=== PATIENT | female | born 1985 | race Caucasian/White ===

== ENCOUNTER 2018-12-14 04:40 | Inpatient (IN) | payer MEDICAID ==
[2018-12-14 05:24] LABS: ADD MAN DIFF? NO
[2018-12-14 05:29] LABS: WHITE BLOOD COUNT 7.7 10^3/ul (4.8-10.8)
[2018-12-14 05:29] LABS: BASOPHIL # 0.1 10^3/ul (0.0-0.1); BASOPHILS % 1.2 % (0.0-2.0); EOSINOPHILS # 0.6 10^3/ul (0.0-0.5); EOSINOPHILS % 7.4 % (0.0-7.0); HEMATOCRIT 39.8 % (37.0-47.0); HEMOGLOBIN 13.7 g/dl (12.0-16.0); LYMPHOCYTES # 2.9 10^3/ul (0.8-2.9); LYMPHOCYTES % 37.5 % (15.0-51.0); MEAN CORPUSCULAR HEMOGLOBIN 28.8 pg (29.0-33.0); MEAN CORPUSCULAR HGB CONC 34.4 g/dl (32.0-37.0); MEAN CORPUSCULAR VOLUME 83.8 fl (82.0-101.0); MEAN PLATELET VOLUME 9.9 fl (7.4-10.4); MONOCYTE # 0.7 10^3/ul (0.3-0.9); MONOCYTES % 9.5 % (0.0-11.0); NEUTROPHIL # 3.4 10^3/ul (1.6-7.5); NEUTROPHILS % 44.3 % (39.0-77.0); PLATELET COUNT 378 10^3/UL (140-415); RED BLOOD COUNT 4.75 10^6/ul (4.20-5.40); RED CELL DISTRIBUTION WIDTH 12.4 % (11.5-14.5)
[2018-12-14] MEDS: morphine 4 MG/ML VIAL IV (05:30)
[2018-12-14] MEDS: ONDANSETRON 4 MG INJ IV (05:30)
[2018-12-14 06:06] LABS: ALANINE AMINOTRANSFERASE 20 IU/L (13-69); ALBUMIN/GLOBULIN RATIO 1.35; ALKALINE PHOSPHATASE 76 IU/L (42-121); ANION GAP 14 (5-13); ASPARTATE AMINO TRANSFERASE 25 IU/L (15-46); BILIRUBIN,INDIRECT 1.2 mg/dl (0-1.1); BILIRUBIN,TOTAL 1.2 mg/dl (0.2-1.3); BLOOD UREA NITROGEN 15 mg/dl (7-20); CALCIUM 10.1 mg/dl (8.4-10.2); CARBON DIOXIDE 27 mmol/L (21-31); CHLORIDE 105 mmol/L (97-110); CREATININE 0.81 mg/dl (0.44-1.00); Estimated GFR > 60 mL/min (>60); GLUCOSE 140 mg/dl (70-220); LIPASE 331 U/L (23-300); POTASSIUM 3.8 mmol/L (3.5-5.1); SODIUM 146 mmol/L (135-144); TOTAL PROTEIN 8.7 g/dl (6.1-8.1)
[2018-12-14 08:21] LABS: ADD UMIC YES; UR AMORPHOUS CRYSTAL FEW /HPF (NONE SEEN); UR ASCORBIC ACID NEGATIVE (NEGATIVE); UR BILIRUBIN (Dip) NEGATIVE (NEGATIVE); UR BLOOD (Dip) NEGATIVE (NEGATIVE); UR CLARITY CLOUDY (CLEAR); UR COLOR YELLOW (YELLOW); UR GLUCOSE (Dip) NEGATIVE (NEGATIVE); UR KETONES (Dip) TRACE mg/dL (NEGATIVE); UR LEUKOCYTE ESTERASE (Dip) NEGATIVE Leu/ul (NEGATIVE); UR MUCUS MODERATE /HPF (NONE SEEN); UR NITRITE (Dip) NEGATIVE (NEGATIVE); UR RBC 2 /HPF (0-5); UR SPECIFIC GRAVITY (Dip) 1.025 (1.003-1.030); UR SQUAMOUS EPITHELIAL CELL FEW /HPF (FEW); UR TOTAL PROTEIN (Dip) 1+ mg/dl (NEGATIVE); UR UROBILINOGEN (Dip) NEGATIVE (NEGATIVE); UR WBC 0 /HPF (0-5)
[2018-12-14] MEDS: SOD CHLORIDE 0.9% 100 ML (10:50)
[2018-12-14] MEDS: IOHEXOL 100 ML (10:50)
[2018-12-14] MEDS: LORAZEPAM 2 MG INJ IV (13:21)
[2018-12-14] MEDS ORDERED: ACETAMINOPHEN 325 MG TAB PO (13:30)
[2018-12-14] MEDS ORDERED: ONDANSETRON 4 MG INJ IV ×2 (13:30→14:00)
[2018-12-14] MEDS ORDERED: NACL 0.9% 3 ML SYG IV (14:00)
[2018-12-14 15:16] LABS: AMPHETAMINE/METHAMPHETAMINE Positive (NEGATIVE); BARBITURATES Negative (NEGATIVE); BENZODIAZEPINES Negative (NEGATIVE); CANNABINOIDS Negative (NEGATIVE); COCAINE Negative (NEGATIVE)
[2018-12-14 15:17] LABS: OPIATES Positive (NEGATIVE)
[2018-12-14 15:26] LABS: TRIGLYCERIDES 73 mg/dl (0-149)
[2018-12-14 15:31] LABS: INR 0.98; PROTIME 13.1 Sec (11.9-14.9)
[2018-12-14 15:40] LABS: FREE T4 (FREE THYROXINE) 1.79 ng/dl (0.79-2.35)
[2018-12-14] MEDS: SOD CHLORIDE 0.9% 1,000 ML IV ×2 (17:41→22:00)
[2018-12-15] MEDS: LORAZEPAM 2 MG INJ IV (00:47)
[2018-12-15] MEDS: SOD CHLORIDE 0.9% 1,000 ML IV ×2 (01:46→12:04)
[2018-12-15 06:05] LABS: ADD MAN DIFF? NO
[2018-12-15 06:09] LABS: BASOPHIL # 0.1 10^3/ul (0.0-0.1); BASOPHILS % 0.6 % (0.0-2.0); EOSINOPHILS # 0.6 10^3/ul (0.0-0.5); EOSINOPHILS % 6.3 % (0.0-7.0); HEMATOCRIT 32.6 % (37.0-47.0); HEMOGLOBIN 10.9 g/dl (12.0-16.0); LYMPHOCYTES # 3.2 10^3/ul (0.8-2.9); LYMPHOCYTES % 36.5 % (15.0-51.0); MEAN CORPUSCULAR HEMOGLOBIN 28.7 pg (29.0-33.0); MEAN CORPUSCULAR HGB CONC 33.4 g/dl (32.0-37.0); MEAN CORPUSCULAR VOLUME 85.8 fl (82.0-101.0); MONOCYTE # 0.6 10^3/ul (0.3-0.9); MONOCYTES % 7.2 % (0.0-11.0); NEUTROPHIL # 4.3 10^3/ul (1.6-7.5); NEUTROPHILS % 49.2 % (39.0-77.0); PLATELET COUNT 257 10^3/UL (140-415); RED CELL DISTRIBUTION WIDTH 12.7 % (11.5-14.5)
[2018-12-15 06:09] LABS: WHITE BLOOD COUNT 8.7 10^3/ul (4.8-10.8)
[2018-12-15 06:29] LABS: INR 1.06; PROTIME 13.9 Sec (11.9-14.9); PT RATIO 1.1
[2018-12-15 06:30] LABS: PARTIAL THROMBOPLASTIN TIME 28.7 Sec (23.0-35.0)
[2018-12-15 06:37] LABS: PHOSPHORUS 3.9 mg/dl (2.5-4.9)
[2018-12-15 06:37] LABS: MAGNESIUM 2.2 mg/dl (1.7-2.5)
[2018-12-15 06:44] LABS: ALANINE AMINOTRANSFERASE 19 IU/L (13-69); ALBUMIN 3.4 g/dl (3.3-4.9); ALBUMIN/GLOBULIN RATIO 1.21; ALKALINE PHOSPHATASE 42 IU/L (42-121); AMYLASE 62 U/L (11-123); ANION GAP 7 (5-13); ASPARTATE AMINO TRANSFERASE 18 IU/L (15-46); BLOOD UREA NITROGEN 9 mg/dl (7-20); CALCIUM 8.1 mg/dl (8.4-10.2); CARBON DIOXIDE 24 mmol/L (21-31); CHLORIDE 112 mmol/L (97-110); CREATININE 0.69 mg/dl (0.44-1.00); Estimated GFR > 60 mL/min (>60); GLUCOSE 87 mg/dl (70-220); LIPASE 83 U/L (23-300); POTASSIUM 3.9 mmol/L (3.5-5.1); SODIUM 143 mmol/L (135-144); TOTAL PROTEIN 6.2 g/dl (6.1-8.1)
[2018-12-15] MEDS ORDERED: FAT EMULSION 20% 250 ML IV (09:00)
[2018-12-15] MEDS: LIDOCAINE 1% (MPF) 5 ML VIAL SC (10:15)
[2018-12-15] MEDS: ACCU-CHEK XX ×2 (17:00→20:49)
[2018-12-15] MEDS: TPN 1,000 ML IV (17:56)
[2018-12-15] MEDS: HYDROmorphONE 0.5 MG/0.5 ML SYG IV (20:44)
[2018-12-15] MEDS: ALPRAZOLAM 0.5 MG TAB PO (22:32)
[2018-12-16] MEDS: ACCU-CHEK XX ×6 (01:22→21:48)
[2018-12-16] MEDS ORDERED: GLUCAGON 1 MG INJ IM (02:30)
[2018-12-16] MEDS ORDERED: DEXTROSE 50% 50 ML SYRINGE IV (02:30)
[2018-12-16] MEDS ORDERED: GLUCOSE GEL 15 GRAM TUBE PO ×2 (02:30)
[2018-12-16] MEDS ORDERED: GLUCOSE GEL 15 GRAM TUBE BUCCAL (02:30)
[2018-12-16] MEDS: INSULIN ASPART [NOVOLOG] 3 ML PEN SC ×5 (05:00→21:00)
[2018-12-16] MEDS: TPN 1,000 ML IV ×2 (05:36→21:00)
[2018-12-16 05:46] LABS: ADD MAN DIFF? NO
[2018-12-16 05:48] LABS: BASOPHIL # 0.1 10^3/ul (0.0-0.1); BASOPHILS % 0.9 % (0.0-2.0); EOSINOPHILS # 0.5 10^3/ul (0.0-0.5); HEMATOCRIT 29.8 % (37.0-47.0); HEMOGLOBIN 10.2 g/dl (12.0-16.0); LYMPHOCYTES % 36.9 % (15.0-51.0); MEAN CORPUSCULAR HEMOGLOBIN 29.1 pg (29.0-33.0); MEAN CORPUSCULAR HGB CONC 34.2 g/dl (32.0-37.0); MEAN CORPUSCULAR VOLUME 84.9 fl (82.0-101.0); MEAN PLATELET VOLUME 10.3 fl (7.4-10.4); MONOCYTE # 0.6 10^3/ul (0.3-0.9); MONOCYTES % 6.8 % (0.0-11.0); NEUTROPHILS % 49.2 % (39.0-77.0); PLATELET COUNT 215 10^3/UL (140-415); RED BLOOD COUNT 3.51 10^6/ul (4.20-5.40); RED CELL DISTRIBUTION WIDTH 12.3 % (11.5-14.5)
[2018-12-16 05:48] LABS: WHITE BLOOD COUNT 8.1 10^3/ul (4.8-10.8)
[2018-12-16 06:23] LABS: PHOSPHORUS 3.2 mg/dl (2.5-4.9)
[2018-12-16 06:38] LABS: ALANINE AMINOTRANSFERASE 20 IU/L (13-69); ALBUMIN 3.1 g/dl (3.3-4.9); ALBUMIN/GLOBULIN RATIO 1.03; ALKALINE PHOSPHATASE 33 IU/L (42-121); ANION GAP 5 (5-13); ASPARTATE AMINO TRANSFERASE 20 IU/L (15-46); BILIRUBIN,INDIRECT 2.2 mg/dl (0-1.1); BILIRUBIN,TOTAL 2.2 mg/dl (0.2-1.3); BLOOD UREA NITROGEN 12 mg/dl (7-20); CALCIUM 7.9 mg/dl (8.4-10.2); CARBON DIOXIDE 26 mmol/L (21-31); CHLORIDE 108 mmol/L (97-110); CREATININE 0.51 mg/dl (0.44-1.00); Estimated GFR > 60 mL/min (>60); GLUCOSE 113 mg/dl (70-220); POTASSIUM 3.9 mmol/L (3.5-5.1); SODIUM 139 mmol/L (135-144); TOTAL PROTEIN 6.1 g/dl (6.1-8.1)
[2018-12-16] MEDS: FAMOTIDINE 20 MG INJ IV (19:19)
[2018-12-16] MEDS: DEXTROSE 50% 50 ML SYRINGE IV (22:08)
[2018-12-17] MEDS: HYDROmorphONE 0.5 MG/0.5 ML SYG IV (02:50)
[2018-12-17] MEDS: ACCU-CHEK XX ×3 (05:55→17:05)
[2018-12-17] MEDS: INSULIN ASPART [NOVOLOG] 3 ML PEN SC ×3 (05:55→17:04)
[2018-12-17 06:55] LABS: ANION GAP 8 (5-13); BLOOD UREA NITROGEN 12 mg/dl (7-20); CALCIUM 8.4 mg/dl (8.4-10.2); CARBON DIOXIDE 28 mmol/L (21-31); CHLORIDE 107 mmol/L (97-110); CREATININE 0.67 mg/dl (0.44-1.00); Estimated GFR > 60 mL/min (>60); GLUCOSE 105 mg/dl (70-220); POTASSIUM 3.8 mmol/L (3.5-5.1); SODIUM 143 mmol/L (135-144)
[2018-12-17] MEDS: DULOXETINE 20 MG CAP DR PO ×2 (09:00→12:29)
[2018-12-17] MEDS: ENOXAPARIN 40 MG/0.4 ML SYG SC (09:18)
[2018-12-17] MEDS: FAMOTIDINE 20 MG INJ IV (09:18)
[2018-12-17] MEDS: TPN 1,000 ML IV (11:17)
[2018-12-18] MEDS: HYDROmorphONE 0.5 MG/0.5 ML SYG IV ×3 (02:03→20:20)
[2018-12-18] MEDS: TPN 1,000 ML IV ×2 (02:53→20:23)
[2018-12-18] MEDS: ACCU-CHEK XX ×5 (06:00→23:13)
[2018-12-18] MEDS: INSULIN ASPART [NOVOLOG] 3 ML PEN SC ×5 (06:00→23:05)
[2018-12-18 06:29] LABS: ANION GAP 7 (5-13); BLOOD UREA NITROGEN 13 mg/dl (7-20); CALCIUM 8.1 mg/dl (8.4-10.2); CARBON DIOXIDE 27 mmol/L (21-31); CHLORIDE 107 mmol/L (97-110); CREATININE 0.59 mg/dl (0.44-1.00); Estimated GFR > 60 mL/min (>60); GLUCOSE 113 mg/dl (70-220); MAGNESIUM 2.1 mg/dl (1.7-2.5); PHOSPHORUS 3.6 mg/dl (2.5-4.9); POTASSIUM 3.7 mmol/L (3.5-5.1); SODIUM 141 mmol/L (135-144)
[2018-12-18] MEDS: FAMOTIDINE 20 MG TAB PO (08:54)
[2018-12-18] MEDS: DULOXETINE 20 MG CAP DR PO (08:54)
[2018-12-18] MEDS: ENOXAPARIN 40 MG/0.4 ML SYG SC (09:00)
[2018-12-18] MEDS: BUPIVACAINE 0.25%/EPI (SDV) 30 ML INJ (09:48)
[2018-12-18] MEDS: LIDOCAINE 1% (MPF) 30 ML INJ (09:49)
[2018-12-18] MEDS ORDERED: CEFAZOLIN 1 GM INJ ×2 (10:00→11:17)
[2018-12-18] MEDS ORDERED: ROPIVACAINE 0.5 % 30 ML VIAL (10:03)
[2018-12-18] MEDS ORDERED: LIDOCAINE 2% (SDV) 5 ML INJ (10:25)
[2018-12-18] MEDS ORDERED: PROPOFOL 20 ML (10:25)
[2018-12-18] MEDS ORDERED: SUCCINYLCHOLINE CHLORIDE 100 MG/5 ML SYG IV (10:25)
[2018-12-18] MEDS ORDERED: ROCURONIUM 50 MG INJ (10:25)
[2018-12-18] MEDS ORDERED: FENTAnyl 50 MCG/ML VIAL (10:26)
[2018-12-18] MEDS ORDERED: MIDAZOLAM 1 MG/ML 2 ML INJ (10:26)
[2018-12-18] MEDS ORDERED: EPHEDrine 25 MG/5 ML SYG (11:05)
[2018-12-18] MEDS ORDERED: DEXAMETHASONE 4 MG/ML 5 ML INJ (11:17)
[2018-12-18] MEDS ORDERED: ONDANSETRON 4 MG INJ (11:17)
[2018-12-18] MEDS ORDERED: FAMOTIDINE 20 MG INJ (11:17)
[2018-12-18] MEDS ORDERED: SUGAMMADEX SODIUM 200 MG/2 ML VIAL IV (13:26)
[2018-12-18] MEDS ORDERED: KETOROLAC 30 MG INJ (13:27)
[2018-12-18] MEDS ORDERED: HYDROmorphONE 0.5 MG/0.5 ML SYG IV (13:30)
[2018-12-18] MEDS ORDERED: DIPHENHYDRAMINE 50 MG INJ IV (13:30)
[2018-12-18] MEDS: D5W-0.45 NACL + KCL 20 MEQ 1,000 ML IV ×2 (17:06→23:11)
[2018-12-18] MEDS: KETOROLAC 15 MG INJ IV (18:02)
[2018-12-19] MEDS: KETOROLAC 15 MG INJ IV
[2018-12-19] MEDS: HYDROmorphONE 0.5 MG/0.5 ML SYG IV ×3 (01:26→20:00)
[2018-12-19] MEDS: D5W-0.45 NACL + KCL 20 MEQ 1,000 ML IV (02:26)
[2018-12-19] MEDS: HYDROmorphONE 1 MG/ML SYG IV (03:04)
[2018-12-19] MEDS ORDERED: PANTOPRAZOLE 40 MG INJ (04:48)
[2018-12-19] MEDS: INSULIN ASPART [NOVOLOG] 3 ML PEN SC ×3 (05:16→17:08)
[2018-12-19] MEDS: PANTOPRAZOLE 40 MG INJ IV (05:16)
[2018-12-19] MEDS: TPN 1,000 ML IV ×2 (05:48→10:13)
[2018-12-19] MEDS: ACCU-CHEK XX ×3 (05:54→17:08)
[2018-12-19 06:07] LABS: ANION GAP 6 (5-13); BLOOD UREA NITROGEN 14 mg/dl (7-20); CALCIUM 7.7 mg/dl (8.4-10.2); CARBON DIOXIDE 28 mmol/L (21-31); CHLORIDE 107 mmol/L (97-110); CREATININE 0.56 mg/dl (0.44-1.00); Estimated GFR > 60 mL/min (>60); GLUCOSE 115 mg/dl (70-220); MAGNESIUM 1.9 mg/dl (1.7-2.5); PHOSPHORUS 2.4 mg/dl (2.5-4.9); POTASSIUM 3.9 mmol/L (3.5-5.1); SODIUM 141 mmol/L (135-144)
[2018-12-19] MEDS: FAMOTIDINE 20 MG TAB PO (08:35)
[2018-12-19] MEDS: DULOXETINE 20 MG CAP DR PO (08:35)
[2018-12-19] MEDS: ENOXAPARIN 40 MG/0.4 ML SYG SC (08:43)
[2018-12-19 11:50] LABS: ANION GAP 5 (5-13); Estimated GFR > 60 mL/min (>60)
[2018-12-19 11:51] LABS: BLOOD UREA NITROGEN 11 mg/dl (7-20); CALCIUM 7.7 mg/dl (8.4-10.2); CARBON DIOXIDE 27 mmol/L (21-31); CHLORIDE 109 mmol/L (97-110); CREATININE 0.58 mg/dl (0.44-1.00); GLUCOSE 117 mg/dl (70-220); MAGNESIUM 1.9 mg/dl (1.7-2.5); PHOSPHORUS 3.2 mg/dl (2.5-4.9); POTASSIUM 3.6 mmol/L (3.5-5.1); SODIUM 141 mmol/L (135-144)
[2018-12-19] MEDS: METOCLOPRAMIDE 10 MG INJ IV (12:12)
[2018-12-19] MEDS: FAT EMULSION 20% 250 ML IV (16:51)
[2018-12-20] MEDS: ACCU-CHEK XX ×4 (00:04→17:14)
[2018-12-20] MEDS: HYDROmorphONE 0.5 MG/0.5 ML SYG IV ×4 (01:59→22:18)
[2018-12-20] MEDS: TPN 1,000 ML IV ×3 (02:05→16:45)
[2018-12-20 05:19] LABS: HEMATOCRIT 25.9 % (37.0-47.0); HEMOGLOBIN 9.3 g/dl (12.0-16.0); MEAN CORPUSCULAR HEMOGLOBIN 33.6 pg (29.0-33.0); MEAN CORPUSCULAR HGB CONC 35.9 g/dl (32.0-37.0); MEAN CORPUSCULAR VOLUME 93.5 fl (82.0-101.0); MEAN PLATELET VOLUME 10.7 fl (7.4-10.4); PLATELET COUNT 185 10^3/UL (140-415); RED BLOOD COUNT 2.77 10^6/ul (4.20-5.40); RED CELL DISTRIBUTION WIDTH 12.6 % (11.5-14.5)
[2018-12-20 05:37] LABS: MAGNESIUM 1.7 mg/dl (1.7-2.5)
[2018-12-20 05:37] LABS: PHOSPHORUS 6.4 mg/dl (2.5-4.9)
[2018-12-20 05:44] LABS: POSITIVE DIFF @See below
[2018-12-20 05:45] LABS: ADD MAN DIFF? YES
[2018-12-20] MEDS: PANTOPRAZOLE 40 MG INJ IV (05:52)
[2018-12-20] MEDS: INSULIN ASPART [NOVOLOG] 3 ML PEN SC ×4 (06:00→17:14)
[2018-12-20 08:20] LABS: ANISOCYTOSIS 2+ (0-0); BAND NEUTROPHILS #M 0.4 10^3/ul (0.0-0.6); BAND NEUTROPHILS % (M) 6 % (0-4); BURR CELLS 1+ (0-0); EOSINOPHILS % (M) 8 % (0-7); LYMPHOCYTES #M 1.8 10^3/ul (0.8-2.9); LYMPHOCYTES % (M) 23 % (15-51); MONOCYTE #M 0.2 10^3/ul (0.3-0.9); MONOCYTES % (M) 3 % (0-11); PLATELET ESTIMATE NORMAL; POIKILOCYTOSIS 2+ (0-0); POLYCHROMASIA 1+ (0-0); SEG NEUT #M 4.8 10^3/ul (1.6-7.5); SEGMENTED NEUTROPHILS (M) % 60 % (39-77); SMUDGE%M 29 % (0-0); TARGET CELLS 1+ (0-0)
[2018-12-20] MEDS: ENOXAPARIN 40 MG/0.4 ML SYG SC (09:02)
[2018-12-20 10:38] LABS: ALANINE AMINOTRANSFERASE 19 IU/L (13-69); ALBUMIN 3.1 g/dl (3.3-4.9); ALKALINE PHOSPHATASE 28 IU/L (42-121); ANION GAP 7 (5-13); ASPARTATE AMINO TRANSFERASE 23 IU/L (15-46); BILIRUBIN,INDIRECT 0.5 mg/dl (0-1.1); BILIRUBIN,TOTAL 0.5 mg/dl (0.2-1.3); BLOOD UREA NITROGEN 12 mg/dl (7-20); CALCIUM 8.5 mg/dl (8.4-10.2); CARBON DIOXIDE 28 mmol/L (21-31); CHLORIDE 107 mmol/L (97-110); CREATININE 0.47 mg/dl (0.44-1.00); Estimated GFR > 60 mL/min (>60); GLUCOSE 84 mg/dl (70-220); POTASSIUM 4.3 mmol/L (3.5-5.1); SODIUM 142 mmol/L (135-144); TOTAL PROTEIN 5.9 g/dl (6.1-8.1)
[2018-12-20] MEDS: FAT EMULSION 20% 250 ML IV (15:41)
[2018-12-21] MEDS: ACCU-CHEK XX ×4 (00:01→17:23)
[2018-12-21] MEDS: HYDROmorphONE 0.5 MG/0.5 ML SYG IV ×3 (02:24→19:37)
[2018-12-21 05:52] LABS: ADD MAN DIFF? NO
[2018-12-21 05:56] LABS: BASOPHIL # 0.1 10^3/ul (0.0-0.1); BASOPHILS % 0.8 % (0.0-2.0); EOSINOPHILS # 0.6 10^3/ul (0.0-0.5); EOSINOPHILS % 7.8 % (0.0-7.0); HEMATOCRIT 25.9 % (37.0-47.0); HEMOGLOBIN 9.2 g/dl (12.0-16.0); LYMPHOCYTES # 2.1 10^3/ul (0.8-2.9); MEAN CORPUSCULAR HEMOGLOBIN 31.1 pg (29.0-33.0); MEAN CORPUSCULAR HGB CONC 35.5 g/dl (32.0-37.0); MEAN CORPUSCULAR VOLUME 87.5 fl (82.0-101.0); MEAN PLATELET VOLUME 10.9 fl (7.4-10.4); MONOCYTE # 0.5 10^3/ul (0.3-0.9); MONOCYTES % 6.4 % (0.0-11.0); NEUTROPHIL # 4.6 10^3/ul (1.6-7.5); NEUTROPHILS % 57.7 % (39.0-77.0); PLATELET COUNT 193 10^3/UL (140-415); RED BLOOD COUNT 2.96 10^6/ul (4.20-5.40); RED CELL DISTRIBUTION WIDTH 12.3 % (11.5-14.5)
[2018-12-21 05:56] LABS: WHITE BLOOD COUNT 7.9 10^3/ul (4.8-10.8)
[2018-12-21] MEDS: INSULIN ASPART [NOVOLOG] 3 ML PEN SC ×5 (06:00→23:53)
[2018-12-21] MEDS: PANTOPRAZOLE 40 MG INJ IV (06:02)
[2018-12-21] MEDS: TPN 1,000 ML IV ×2 (06:24→21:38)
[2018-12-21 06:36] LABS: ALANINE AMINOTRANSFERASE 12 IU/L (13-69); ALBUMIN/GLOBULIN RATIO 1.15; ALKALINE PHOSPHATASE 26 IU/L (42-121); ANION GAP 9 (5-13); ASPARTATE AMINO TRANSFERASE 23 IU/L (15-46); BILIRUBIN,INDIRECT 0.5 mg/dl (0-1.1); BILIRUBIN,TOTAL 0.5 mg/dl (0.2-1.3); BLOOD UREA NITROGEN 12 mg/dl (7-20); CALCIUM 8.4 mg/dl (8.4-10.2); CARBON DIOXIDE 26 mmol/L (21-31); CHLORIDE 99 mmol/L (97-110); CREATININE 0.67 mg/dl (0.44-1.00); Estimated GFR > 60 mL/min (>60); SODIUM 134 mmol/L (135-144); TOTAL PROTEIN 5.6 g/dl (6.1-8.1)
[2018-12-21 06:40] LABS: PHOSPHORUS 6.2 mg/dl (2.5-4.9)
[2018-12-21 06:40] LABS: MAGNESIUM 1.9 mg/dl (1.7-2.5)
[2018-12-21 06:54] LABS: GLUCOSE 529 mg/dl (70-220)
[2018-12-21 07:02] LABS: TRIGLYCERIDES 794 mg/dl (0-149)
[2018-12-21 08:42] LABS: ANION GAP 6 (5-13); BLOOD UREA NITROGEN 13 mg/dl (7-20); CALCIUM 8.7 mg/dl (8.4-10.2); CARBON DIOXIDE 31 mmol/L (21-31); CHLORIDE 104 mmol/L (97-110); CREATININE 0.57 mg/dl (0.44-1.00); Estimated GFR > 60 mL/min (>60); GLUCOSE 88 mg/dl (70-220); MAGNESIUM 1.9 mg/dl (1.7-2.5); POTASSIUM 3.7 mmol/L (3.5-5.1); SODIUM 141 mmol/L (135-144)
[2018-12-21 08:43] LABS: GLUCOSE 85 mg/dl (70-220)
[2018-12-21] MEDS: ENOXAPARIN 40 MG/0.4 ML SYG SC (09:06)
[2018-12-22] MEDS: CEPASTAT LOZENGE MT ×5 (00:07→23:57)
[2018-12-22] MEDS: HYDROmorphONE 0.5 MG/0.5 ML SYG IV ×5 (00:27→20:43)
[2018-12-22] MEDS: PANTOPRAZOLE 40 MG INJ IV (05:18)
[2018-12-22] MEDS: INSULIN ASPART [NOVOLOG] 3 ML PEN SC ×2 (05:33→18:00)
[2018-12-22] MEDS: ACCU-CHEK XX ×5 (05:34→23:43)
[2018-12-22 06:19] LABS: ANION GAP 8 (5-13); BLOOD UREA NITROGEN 17 mg/dl (7-20); CALCIUM 8.7 mg/dl (8.4-10.2); CARBON DIOXIDE 30 mmol/L (21-31); CHLORIDE 104 mmol/L (97-110); Estimated GFR > 60 mL/min (>60); GLUCOSE 91 mg/dl (70-220); MAGNESIUM 1.9 mg/dl (1.7-2.5); PHOSPHORUS 4.4 mg/dl (2.5-4.9); POTASSIUM 3.9 mmol/L (3.5-5.1); SODIUM 142 mmol/L (135-144); TRIGLYCERIDES 108 mg/dl (0-149)
[2018-12-22] MEDS: ENOXAPARIN 40 MG/0.4 ML SYG SC (08:05)
[2018-12-22] MEDS ORDERED: INSULIN ASPART [NOVOLOG] 3 ML PEN SC (09:00)
[2018-12-22] MEDS ORDERED: CEPASTAT LOZENGE MT (10:30)
[2018-12-22] MEDS: TPN 1,000 ML IV (13:57)
[2018-12-22] MEDS: FAT EMULSION 20% 250 ML IV (15:12)
[2018-12-23] MEDS: HYDROmorphONE 0.5 MG/0.5 ML SYG IV ×3 (00:59→09:04)
[2018-12-23] MEDS: TPN 1,000 ML IV ×4 (01:54→19:56)
[2018-12-23] MEDS: PANTOPRAZOLE 40 MG INJ IV (05:00)
[2018-12-23] MEDS: INSULIN ASPART [NOVOLOG] 3 ML PEN SC ×3 (06:00→20:06)
[2018-12-23] MEDS: ACCU-CHEK XX ×4 (06:00→23:28)
[2018-12-23 06:02] LABS: ANION GAP 7 (5-13); BLOOD UREA NITROGEN 16 mg/dl (7-20); CALCIUM 8.8 mg/dl (8.4-10.2); CARBON DIOXIDE 30 mmol/L (21-31); CHLORIDE 104 mmol/L (97-110); CREATININE 0.57 mg/dl (0.44-1.00); Estimated GFR > 60 mL/min (>60); GLUCOSE 80 mg/dl (70-220); PHOSPHORUS 3.4 mg/dl (2.5-4.9); POTASSIUM 3.7 mmol/L (3.5-5.1); SODIUM 141 mmol/L (135-144)
[2018-12-23] MEDS: CEPASTAT LOZENGE MT ×4 (08:02→19:56)
[2018-12-23] MEDS: ENOXAPARIN 40 MG/0.4 ML SYG SC (08:07)
[2018-12-23] MEDS: HYDROmorphONE 1 MG/ML SYG IV ×2 (15:19→19:56)
[2018-12-23] MEDS: FAT EMULSION 20% 250 ML IV (15:26)
[2018-12-24] MEDS: HYDROmorphONE 1 MG/ML SYG IV ×5 (00:03→22:43)
[2018-12-24] MEDS: HYDROmorphONE 0.5 MG/0.5 ML SYG IV ×2 (01:17→18:29)
[2018-12-24] MEDS: ALTEPLASE (CATHFLO) 2 MG INJ CATHETER (04:59)
[2018-12-24 05:02] LABS: ADD MAN DIFF? NO
[2018-12-24 05:06] LABS: BASOPHIL # 0.1 10^3/ul (0.0-0.1); BASOPHILS % 0.8 % (0.0-2.0); EOSINOPHILS # 0.5 10^3/ul (0.0-0.5); HEMATOCRIT 25.2 % (37.0-47.0); HEMOGLOBIN 8.6 g/dl (12.0-16.0); LYMPHOCYTES # 2.1 10^3/ul (0.8-2.9); MEAN CORPUSCULAR HEMOGLOBIN 29.1 pg (29.0-33.0); MEAN CORPUSCULAR HGB CONC 34.1 g/dl (32.0-37.0); MEAN CORPUSCULAR VOLUME 85.1 fl (82.0-101.0); MEAN PLATELET VOLUME 11.1 fl (7.4-10.4); MONOCYTE # 0.6 10^3/ul (0.3-0.9); MONOCYTES % 8.7 % (0.0-11.0); NEUTROPHIL # 3.4 10^3/ul (1.6-7.5); NEUTROPHILS % 51.2 % (39.0-77.0); PLATELET COUNT 204 10^3/UL (140-415); RED BLOOD COUNT 2.96 10^6/ul (4.20-5.40); RED CELL DISTRIBUTION WIDTH 11.9 % (11.5-14.5)
[2018-12-24 05:06] LABS: WHITE BLOOD COUNT 6.6 10^3/ul (4.8-10.8)
[2018-12-24 05:26] LABS: PHOSPHORUS 3.9 mg/dl (2.5-4.9)
[2018-12-24 05:26] LABS: MAGNESIUM 1.9 mg/dl (1.7-2.5)
[2018-12-24 05:28] LABS: ALANINE AMINOTRANSFERASE 81 IU/L (13-69); ALBUMIN 3.3 g/dl (3.3-4.9); ALKALINE PHOSPHATASE 55 IU/L (42-121); ANION GAP 8 (5-13); ASPARTATE AMINO TRANSFERASE 45 IU/L (15-46); BILIRUBIN,INDIRECT 0.6 mg/dl (0-1.1); BILIRUBIN,TOTAL 0.6 mg/dl (0.2-1.3); BLOOD UREA NITROGEN 13 mg/dl (7-20); CALCIUM 8.5 mg/dl (8.4-10.2); CARBON DIOXIDE 30 mmol/L (21-31); CHLORIDE 103 mmol/L (97-110); CREATININE 0.56 mg/dl (0.44-1.00); Estimated GFR > 60 mL/min (>60); GLUCOSE 105 mg/dl (70-220); POTASSIUM 3.8 mmol/L (3.5-5.1); SODIUM 141 mmol/L (135-144); TOTAL PROTEIN 6.3 g/dl (6.1-8.1)
[2018-12-24] MEDS: PANTOPRAZOLE 40 MG INJ IV (05:35)
[2018-12-24] MEDS: ACCU-CHEK XX ×4 (05:43→23:41)
[2018-12-24] MEDS: INSULIN ASPART [NOVOLOG] 3 ML PEN SC ×2 (08:34→21:00)
[2018-12-24] MEDS: ENOXAPARIN 40 MG/0.4 ML SYG SC (08:38)
[2018-12-24] MEDS: TPN 1,000 ML IV (12:10)
[2018-12-24] MEDS: ONDANSETRON 4 MG INJ IV (14:13)
[2018-12-24] MEDS: FAT EMULSION 20% 250 ML IV (14:19)
[2018-12-25] MEDS: HYDROmorphONE 1 MG/ML SYG IV ×4 (02:38→23:00)
[2018-12-25] MEDS: TPN 1,000 ML IV ×2 (03:38→20:34)
[2018-12-25] MEDS: ACCU-CHEK XX ×3 (04:56→17:11)
[2018-12-25] MEDS: PANTOPRAZOLE 40 MG INJ IV (05:05)
[2018-12-25 05:27] LABS: ADD MAN DIFF? NO
[2018-12-25 05:30] LABS: WHITE BLOOD COUNT 5.8 10^3/ul (4.8-10.8)
[2018-12-25 05:30] LABS: BASOPHIL # 0.1 10^3/ul (0.0-0.1); BASOPHILS % 0.9 % (0.0-2.0); EOSINOPHILS # 0.5 10^3/ul (0.0-0.5); EOSINOPHILS % 9.1 % (0.0-7.0); HEMOGLOBIN 8.9 g/dl (12.0-16.0); LYMPHOCYTES % 33.8 % (15.0-51.0); MEAN CORPUSCULAR HEMOGLOBIN 28.5 pg (29.0-33.0); MEAN CORPUSCULAR VOLUME 86.5 fl (82.0-101.0); MONOCYTE # 0.7 10^3/ul (0.3-0.9); MONOCYTES % 11.1 % (0.0-11.0); NEUTROPHIL # 2.6 10^3/ul (1.6-7.5); NEUTROPHILS % 44.9 % (39.0-77.0); PLATELET COUNT 200 10^3/UL (140-415); RED BLOOD COUNT 3.12 10^6/ul (4.20-5.40)
[2018-12-25 05:52] LABS: ALANINE AMINOTRANSFERASE 76 IU/L (13-69); ALBUMIN 3.3 g/dl (3.3-4.9); ALBUMIN/GLOBULIN RATIO 1.06; ALKALINE PHOSPHATASE 56 IU/L (42-121); ANION GAP 6 (5-13); ASPARTATE AMINO TRANSFERASE 38 IU/L (15-46); BILIRUBIN,INDIRECT 0.4 mg/dl (0-1.1); BILIRUBIN,TOTAL 0.4 mg/dl (0.2-1.3); BLOOD UREA NITROGEN 11 mg/dl (7-20); CALCIUM 8.5 mg/dl (8.4-10.2); CARBON DIOXIDE 30 mmol/L (21-31); CHLORIDE 105 mmol/L (97-110); Estimated GFR > 60 mL/min (>60); GLUCOSE 92 mg/dl (70-220); POTASSIUM 4.1 mmol/L (3.5-5.1); SODIUM 141 mmol/L (135-144); TOTAL PROTEIN 6.4 g/dl (6.1-8.1)
[2018-12-25 05:57] LABS: PHOSPHORUS 3.4 mg/dl (2.5-4.9)
[2018-12-25] MEDS: DULOXETINE 20 MG CAP DR PO (08:27)
[2018-12-25] MEDS: ENOXAPARIN 40 MG/0.4 ML SYG SC (08:32)
[2018-12-25] MEDS: INSULIN ASPART [NOVOLOG] 3 ML PEN SC ×2 (08:33→21:00)
[2018-12-25] MEDS ORDERED: IOHEXOL 300MG/ML 150 ML BTL (15:01)
[2018-12-25] MEDS: FAT EMULSION 20% 250 ML IV (16:30)
[2018-12-25] MEDS: SOD CHLORIDE 0.9% 1,000 ML IV (16:32)
[2018-12-26] MEDS: HYDROmorphONE 1 MG/ML SYG IV ×4 (03:00→16:54)
[2018-12-26] MEDS: PANTOPRAZOLE 40 MG INJ IV (05:37)
[2018-12-26] MEDS: ACCU-CHEK XX ×3 (05:40→12:00)
[2018-12-26 06:09] LABS: ADD MAN DIFF? NO
[2018-12-26 06:19] LABS: WHITE BLOOD COUNT 5.6 10^3/ul (4.8-10.8)
[2018-12-26 06:19] LABS: BASOPHIL # 0.1 10^3/ul (0.0-0.1); BASOPHILS % 1.2 % (0.0-2.0); EOSINOPHILS # 0.6 10^3/ul (0.0-0.5); EOSINOPHILS % 9.8 % (0.0-7.0); HEMATOCRIT 25.4 % (37.0-47.0); HEMOGLOBIN 8.5 g/dl (12.0-16.0); LYMPHOCYTES # 1.9 10^3/ul (0.8-2.9); LYMPHOCYTES % 34.2 % (15.0-51.0); MEAN CORPUSCULAR HGB CONC 33.5 g/dl (32.0-37.0); MEAN CORPUSCULAR VOLUME 86.7 fl (82.0-101.0); MEAN PLATELET VOLUME 11.4 fl (7.4-10.4); MONOCYTE # 0.7 10^3/ul (0.3-0.9); MONOCYTES % 11.9 % (0.0-11.0); NEUTROPHIL # 2.4 10^3/ul (1.6-7.5); NEUTROPHILS % 42.7 % (39.0-77.0); PLATELET COUNT 242 10^3/UL (140-415); RED BLOOD COUNT 2.93 10^6/ul (4.20-5.40); RED CELL DISTRIBUTION WIDTH 11.8 % (11.5-14.5)
[2018-12-26 06:32] LABS: ALANINE AMINOTRANSFERASE 57 IU/L (13-69); ALBUMIN 3.1 g/dl (3.3-4.9); ALKALINE PHOSPHATASE 55 IU/L (42-121); ANION GAP 3 (5-13); ASPARTATE AMINO TRANSFERASE 30 IU/L (15-46); BILIRUBIN,INDIRECT 0.4 mg/dl (0-1.1); BILIRUBIN,TOTAL 0.4 mg/dl (0.2-1.3); BLOOD UREA NITROGEN 13 mg/dl (7-20); CALCIUM 8.4 mg/dl (8.4-10.2); CARBON DIOXIDE 32 mmol/L (21-31); CHLORIDE 105 mmol/L (97-110); CREATININE 0.57 mg/dl (0.44-1.00); Estimated GFR > 60 mL/min (>60); GLUCOSE 92 mg/dl (70-220); POTASSIUM 3.8 mmol/L (3.5-5.1); SODIUM 140 mmol/L (135-144); TOTAL PROTEIN 6.2 g/dl (6.1-8.1)
[2018-12-26 06:36] LABS: PHOSPHORUS 3.4 mg/dl (2.5-4.9)
[2018-12-26] MEDS: DULOXETINE 20 MG CAP DR PO (09:01)
[2018-12-26] MEDS: ENOXAPARIN 40 MG/0.4 ML SYG SC (09:02)
[2018-12-26] MEDS: INSULIN ASPART [NOVOLOG] 3 ML PEN SC (09:02)
== END 2018-12-26 18:40 | disposition home or self-care (01) | DRG 330 ==
LOC: E/R 04:40 → 5EC 12-16 19:54 → PP2 13:16
PROC: 0D194ZA Bypass Duodenum to Jejunum, Percutaneous Endoscopic Approach (ICD-10-PCS; principal; 2018-12-18 10:48)
PROC: 0D9670Z Drainage of Stomach with Drainage Device, Via Natural or Artificial Opening (ICD-10-PCS; 2018-12-18 10:48)
DX: K55.1 Chronic vascular disorders of intestine (principal); E44.0 Moderate protein-calorie malnutrition; Z68.1 Body mass index [BMI] 19.9 or less, adult; F32.9 Major depressive disorder, single episode, unspecified; K31.89 Other diseases of stomach and duodenum; K63.89 Other specified diseases of intestine
CPT/HCPCS: 36415; 36569; 71045; 74018; 74176; 74240; 75635; 76937; 80048; 80053; 80307; 81001; 81025; 82150; 82947; 82962; 83036; 83690; 83735; 84100; 84134; 84439; 84443; 84478; 85025; 85610; 85730; 86850; 86900; 86901; 87086; 96374; 96375; 99285-25

== ENCOUNTER 2019-01-13 02:59 | Observation (INO) | payer MEDICAID ==
[2019-01-13] MEDS: SOD CHLORIDE 0.9% 1,000 ML IV (03:25)
[2019-01-13] MEDS: ONDANSETRON 4 MG INJ IV (03:25)
[2019-01-13] MEDS: morphine 4 MG/ML VIAL IV (03:25)
[2019-01-13 03:34] LABS: ADD MAN DIFF? NO
[2019-01-13 03:35] LABS: WHITE BLOOD COUNT 9.4 10^3/ul (4.8-10.8)
[2019-01-13 03:35] LABS: BASOPHIL # 0.1 10^3/ul (0.0-0.1); EOSINOPHILS # 0.7 10^3/ul (0.0-0.5); EOSINOPHILS % 7.5 % (0.0-7.0); HEMATOCRIT 33.3 % (37.0-47.0); HEMOGLOBIN 10.7 g/dl (12.0-16.0); LYMPHOCYTES # 3.4 10^3/ul (0.8-2.9); LYMPHOCYTES % 36.1 % (15.0-51.0); MEAN CORPUSCULAR HEMOGLOBIN 28.3 pg (29.0-33.0); MEAN CORPUSCULAR HGB CONC 32.1 g/dl (32.0-37.0); MEAN CORPUSCULAR VOLUME 88.1 fl (82.0-101.0); MEAN PLATELET VOLUME 9.7 fl (7.4-10.4); MONOCYTE # 0.7 10^3/ul (0.3-0.9); MONOCYTES % 7.6 % (0.0-11.0); NEUTROPHIL # 4.5 10^3/ul (1.6-7.5); NEUTROPHILS % 47.5 % (39.0-77.0); PLATELET COUNT 311 10^3/UL (140-415); RED BLOOD COUNT 3.78 10^6/ul (4.20-5.40); RED CELL DISTRIBUTION WIDTH 12.5 % (11.5-14.5)
[2019-01-13] MEDS: SOD CHLORIDE 0.9% 100 ML (03:36)
[2019-01-13] MEDS: IOHEXOL 300MG/ML 150 ML BTL (03:36)
[2019-01-13 03:53] LABS: ALANINE AMINOTRANSFERASE 24 IU/L (13-69); ALBUMIN 4.1 g/dl (3.3-4.9); ALBUMIN/GLOBULIN RATIO 1.24; ALKALINE PHOSPHATASE 66 IU/L (42-121); ANION GAP 8 (5-13); ASPARTATE AMINO TRANSFERASE 22 IU/L (15-46); BILIRUBIN,INDIRECT 0.6 mg/dl (0-1.1); BILIRUBIN,TOTAL 0.6 mg/dl (0.2-1.3); BLOOD UREA NITROGEN 10 mg/dl (7-20); CALCIUM 8.9 mg/dl (8.4-10.2); CARBON DIOXIDE 25 mmol/L (21-31); CHLORIDE 108 mmol/L (97-110); CREATININE 0.67 mg/dl (0.44-1.00); Estimated GFR > 60 mL/min (>60); GLUCOSE 112 mg/dl (70-220); LIPASE 169 U/L (23-300); POTASSIUM 4.5 mmol/L (3.5-5.1); SODIUM 141 mmol/L (135-144); TOTAL PROTEIN 7.4 g/dl (6.1-8.1)
[2019-01-13 03:54] LABS: INR 0.89; PROTIME 12.1 Sec (11.9-14.9); PT RATIO 0.9
[2019-01-13 03:55] LABS: PARTIAL THROMBOPLASTIN TIME 26.5 Sec (23.0-35.0)
[2019-01-13] MEDS: HYDROmorphONE 2 MG/ML SYG IV (03:55)
[2019-01-13] MEDS ORDERED: ONDANSETRON 4 MG INJ IV (06:00)
[2019-01-13] MEDS ORDERED: ACETAMINOPHEN 325 MG TAB PO (06:00)
[2019-01-13 07:42] LABS: ADD UMIC NO; UR ASCORBIC ACID 40 mg/dL (NEGATIVE); UR BILIRUBIN (Dip) NEGATIVE (NEGATIVE); UR BLOOD (Dip) NEGATIVE (NEGATIVE); UR CLARITY CLEAR (CLEAR); UR COLOR YELLOW (YELLOW); UR GLUCOSE (Dip) NEGATIVE (NEGATIVE); UR KETONES (Dip) TRACE mg/dL (NEGATIVE); UR LEUKOCYTE ESTERASE (Dip) NEGATIVE Leu/ul (NEGATIVE); UR NITRITE (Dip) NEGATIVE (NEGATIVE); UR SPECIFIC GRAVITY (Dip) > 1.060 (1.003-1.030); UR TOTAL PROTEIN (Dip) NEGATIVE (NEGATIVE); UR UROBILINOGEN (Dip) NEGATIVE (NEGATIVE)
[2019-01-13] MEDS: KETOROLAC 15 MG INJ IV (14:24)
[2019-01-13] MEDS: FAMOTIDINE 20 MG TAB PO ×2 (14:24→21:21)
[2019-01-13] MEDS: DOCUSATE SODIUM 100 MG CAP PO ×2 (14:24→21:21)
[2019-01-13] MEDS: POLYETHYLENE GLYCOL 17 GM PACKET PO (14:28)
[2019-01-13] MEDS: HYDROmorphONE 1 MG/ML SYG IV (16:56)
[2019-01-13] MEDS ORDERED: OXYMETAZOLINE 0.05% 15 ML NAS SPRAY NASAL (17:30)
[2019-01-13] MEDS: morphine 2 MG INJ IV ×2 (19:53→23:27)
[2019-01-14] MEDS: KETOROLAC 30 MG INJ IV ×2 (01:20→11:22)
[2019-01-14] MEDS: ZOLPIDEM 5 MG TAB PO (02:51)
[2019-01-14 06:02] LABS: ADD MAN DIFF? NO
[2019-01-14 06:13] LABS: WHITE BLOOD COUNT 8.4 10^3/ul (4.8-10.8)
[2019-01-14 06:13] LABS: BASOPHIL # 0.1 10^3/ul (0.0-0.1); BASOPHILS % 0.7 % (0.0-2.0); EOSINOPHILS # 0.7 10^3/ul (0.0-0.5); EOSINOPHILS % 7.8 % (0.0-7.0); HEMATOCRIT 29.4 % (37.0-47.0); HEMOGLOBIN 9.4 g/dl (12.0-16.0); LYMPHOCYTES # 2.3 10^3/ul (0.8-2.9); LYMPHOCYTES % 27.4 % (15.0-51.0); MEAN CORPUSCULAR HEMOGLOBIN 28.1 pg (29.0-33.0); MEAN CORPUSCULAR VOLUME 87.8 fl (82.0-101.0); MEAN PLATELET VOLUME 10.6 fl (7.4-10.4); MONOCYTE # 0.6 10^3/ul (0.3-0.9); MONOCYTES % 6.8 % (0.0-11.0); NEUTROPHIL # 4.8 10^3/ul (1.6-7.5); NEUTROPHILS % 57.1 % (39.0-77.0); PLATELET COUNT 244 10^3/UL (140-415); RED BLOOD COUNT 3.35 10^6/ul (4.20-5.40); RED CELL DISTRIBUTION WIDTH 12.5 % (11.5-14.5)
[2019-01-14 06:53] LABS: ALANINE AMINOTRANSFERASE 28 IU/L (13-69); ALBUMIN 3.5 g/dl (3.3-4.9); ALKALINE PHOSPHATASE 55 IU/L (42-121); ANION GAP 8 (5-13); ASPARTATE AMINO TRANSFERASE 23 IU/L (15-46); BILIRUBIN,INDIRECT 1.4 mg/dl (0-1.1); BILIRUBIN,TOTAL 1.4 mg/dl (0.2-1.3); BLOOD UREA NITROGEN 7 mg/dl (7-20); CALCIUM 8.5 mg/dl (8.4-10.2); CARBON DIOXIDE 25 mmol/L (21-31); CHLORIDE 109 mmol/L (97-110); CREATININE 0.64 mg/dl (0.44-1.00); Estimated GFR > 60 mL/min (>60); GLUCOSE 88 mg/dl (70-220); POTASSIUM 3.7 mmol/L (3.5-5.1); SODIUM 142 mmol/L (135-144); TOTAL PROTEIN 6.3 g/dl (6.1-8.1)
[2019-01-14] MEDS: FAMOTIDINE 20 MG TAB PO (08:01)
[2019-01-14] MEDS: DOCUSATE SODIUM 100 MG CAP PO (08:01)
[2019-01-14] MEDS: morphine 2 MG INJ IV (08:01)
== END 2019-01-14 16:20 | disposition home or self-care (01) ==
LOC: E/R 02:59 → MS3 05:50
DX: G89.18 Other acute postprocedural pain (principal); F32.9 Major depressive disorder, single episode, unspecified; F41.9 Anxiety disorder, unspecified; F15.10 Other stimulant abuse, uncomplicated
CPT/HCPCS: 36415; 74177; 76856; 80048; 80053; 80076; 81003; 83690; 83735; 84703; 85025; 85610; 85730; 87081; 96374; 96375; 99285-25

== ENCOUNTER 2019-01-16 20:27 | Inpatient (IN) | payer MEDICAID ==
[2019-01-16 21:30] LABS: ADD MAN DIFF? NO
[2019-01-16 21:31] LABS: BASOPHIL # 0.1 10^3/ul (0.0-0.1); BASOPHILS % 0.5 % (0.0-2.0); EOSINOPHILS # 0.3 10^3/ul (0.0-0.5); EOSINOPHILS % 2.8 % (0.0-7.0); HEMATOCRIT 36.5 % (37.0-47.0); HEMOGLOBIN 11.7 g/dl (12.0-16.0); LYMPHOCYTES # 1.6 10^3/ul (0.8-2.9); LYMPHOCYTES % 13.2 % (15.0-51.0); MEAN CORPUSCULAR HEMOGLOBIN 27.9 pg (29.0-33.0); MEAN CORPUSCULAR HGB CONC 32.1 g/dl (32.0-37.0); MEAN CORPUSCULAR VOLUME 86.9 fl (82.0-101.0); MEAN PLATELET VOLUME 9.9 fl (7.4-10.4); MONOCYTE # 0.6 10^3/ul (0.3-0.9); MONOCYTES % 5.4 % (0.0-11.0); NEUTROPHIL # 9.3 10^3/ul (1.6-7.5); NEUTROPHILS % 77.7 % (39.0-77.0); PLATELET COUNT 313 10^3/UL (140-415); RED CELL DISTRIBUTION WIDTH 12.4 % (11.5-14.5)
[2019-01-16 21:31] LABS: WHITE BLOOD COUNT 11.9 10^3/ul (4.8-10.8)
[2019-01-16] MEDS: ONDANSETRON 4 MG INJ IV (21:31)
[2019-01-16] MEDS: HYDROmorphONE 1 MG/ML SYG IV (21:32)
[2019-01-16] MEDS: SOD CHLORIDE 0.9% 1,000 ML IV (21:33)
[2019-01-16 21:44] LABS: ALANINE AMINOTRANSFERASE 22 IU/L (13-69); ALBUMIN 4.6 g/dl (3.3-4.9); ALBUMIN/GLOBULIN RATIO 1.24; ALKALINE PHOSPHATASE 69 IU/L (42-121); ANION GAP 11 (5-13); ASPARTATE AMINO TRANSFERASE 22 IU/L (15-46); BILIRUBIN,INDIRECT 1.1 mg/dl (0-1.1); BILIRUBIN,TOTAL 1.1 mg/dl (0.2-1.3); BLOOD UREA NITROGEN 8 mg/dl (7-20); CALCIUM 9.5 mg/dl (8.4-10.2); CARBON DIOXIDE 27 mmol/L (21-31); CHLORIDE 105 mmol/L (97-110); CREATININE 0.68 mg/dl (0.44-1.00); Estimated GFR > 60 mL/min (>60); GLUCOSE 128 mg/dl (70-220); LIPASE 103 U/L (23-300); POTASSIUM 4.2 mmol/L (3.5-5.1); SODIUM 143 mmol/L (135-144); TOTAL PROTEIN 8.3 g/dl (6.1-8.1)
[2019-01-16] MEDS ORDERED: ACETAMINOPHEN 325 MG TAB PO (23:00)
[2019-01-16] MEDS ORDERED: ONDANSETRON 4 MG INJ IV (23:00)
[2019-01-17] MEDS ORDERED: ALBUTEROL/IPRATROPIUM (NEB) 3 ML AMP HHN (01:30)
[2019-01-17] MEDS ORDERED: morphine 2 MG INJ IV (01:30)
[2019-01-17] MEDS ORDERED: NACL 0.9% 3 ML SYG IV (01:30)
[2019-01-17] MEDS ORDERED: LORAZEPAM 2 MG INJ IV (01:30)
[2019-01-17] MEDS: HYDROmorphONE 1 MG/ML SYG IV ×6 (01:37→21:53)
[2019-01-17] MEDS: DEXTROSE 5%-0.45% NACL 1,000 ML IV ×2 (01:43→11:35)
[2019-01-17] MEDS: ONDANSETRON 4 MG INJ IV (03:37)
[2019-01-17 05:23] LABS: ADD MAN DIFF? NO
[2019-01-17 05:39] LABS: WHITE BLOOD COUNT 11.2 10^3/ul (4.8-10.8)
[2019-01-17 05:39] LABS: BASOPHIL # 0.1 10^3/ul (0.0-0.1); BASOPHILS % 0.4 % (0.0-2.0); EOSINOPHILS # 0.2 10^3/ul (0.0-0.5); EOSINOPHILS % 1.5 % (0.0-7.0); HEMATOCRIT 32.9 % (37.0-47.0); HEMOGLOBIN 10.5 g/dl (12.0-16.0); LYMPHOCYTES # 2.1 10^3/ul (0.8-2.9); MEAN CORPUSCULAR HEMOGLOBIN 28.1 pg (29.0-33.0); MEAN CORPUSCULAR HGB CONC 31.9 g/dl (32.0-37.0); MEAN PLATELET VOLUME 10.4 fl (7.4-10.4); MONOCYTE # 0.7 10^3/ul (0.3-0.9); MONOCYTES % 6.1 % (0.0-11.0); NEUTROPHIL # 8.1 10^3/ul (1.6-7.5); NEUTROPHILS % 72.6 % (39.0-77.0); PLATELET COUNT 269 10^3/UL (140-415); RED BLOOD COUNT 3.74 10^6/ul (4.20-5.40); RED CELL DISTRIBUTION WIDTH 12.6 % (11.5-14.5)
[2019-01-17] MEDS: PANTOPRAZOLE 40 MG INJ IV (05:42)
[2019-01-17 06:28] LABS: ALANINE AMINOTRANSFERASE 24 IU/L (13-69); ALBUMIN 3.8 g/dl (3.3-4.9); ALBUMIN/GLOBULIN RATIO 1.31; ALKALINE PHOSPHATASE 46 IU/L (42-121); ANION GAP 6 (5-13); ASPARTATE AMINO TRANSFERASE 20 IU/L (15-46); BILIRUBIN,INDIRECT 1.2 mg/dl (0-1.1); BILIRUBIN,TOTAL 1.2 mg/dl (0.2-1.3); BLOOD UREA NITROGEN 7 mg/dl (7-20); CALCIUM 8.4 mg/dl (8.4-10.2); CARBON DIOXIDE 26 mmol/L (21-31); CHLORIDE 107 mmol/L (97-110); CREATININE 0.55 mg/dl (0.44-1.00); Estimated GFR > 60 mL/min (>60); GLUCOSE 126 mg/dl (70-220); PHOSPHORUS 3.7 mg/dl (2.5-4.9); POTASSIUM 3.7 mmol/L (3.5-5.1); SODIUM 139 mmol/L (135-144); TOTAL PROTEIN 6.7 g/dl (6.1-8.1)
[2019-01-17 08:51] LABS: ADD UMIC NO; UR ASCORBIC ACID 20 mg/dL (NEGATIVE); UR BACTERIA FEW /HPF (NONE SEEN); UR BILIRUBIN (Dip) NEGATIVE (NEGATIVE); UR BLOOD (Dip) NEGATIVE (NEGATIVE); UR CLARITY SLIGHTLY CLOUDY (CLEAR); UR COLOR YELLOW (YELLOW); UR GLUCOSE (Dip) NEGATIVE (NEGATIVE); UR KETONES (Dip) NEGATIVE (NEGATIVE); UR LEUKOCYTE ESTERASE (Dip) NEGATIVE Leu/ul (NEGATIVE); UR MUCUS MANY /HPF (NONE SEEN); UR NITRITE (Dip) NEGATIVE (NEGATIVE); UR RBC 1 /HPF (0-5); UR SPECIFIC GRAVITY (Dip) 1.024 (1.003-1.030); UR SQUAMOUS EPITHELIAL CELL FEW /HPF (FEW); UR TOTAL PROTEIN (Dip) NEGATIVE (NEGATIVE); UR UROBILINOGEN (Dip) NEGATIVE (NEGATIVE); UR WBC 8 /HPF (0-5)
[2019-01-17 14:44] LABS: ADD UMIC YES; UR ASCORBIC ACID NEGATIVE (NEGATIVE); UR BACTERIA FEW /HPF (NONE SEEN); UR BILIRUBIN (Dip) NEGATIVE (NEGATIVE); UR BLOOD (Dip) NEGATIVE (NEGATIVE); UR CLARITY SLIGHTLY CLOUDY (CLEAR); UR COLOR YELLOW (YELLOW); UR GLUCOSE (Dip) NEGATIVE (NEGATIVE); UR KETONES (Dip) NEGATIVE (NEGATIVE); UR LEUKOCYTE ESTERASE (Dip) TRACE Leu/ul (NEGATIVE); UR MUCUS FEW /HPF (NONE SEEN); UR NITRITE (Dip) POSITIVE (NEGATIVE); UR RBC 0 /HPF (0-5); UR SPECIFIC GRAVITY (Dip) 1.011 (1.003-1.030); UR TOTAL PROTEIN (Dip) NEGATIVE (NEGATIVE); UR UROBILINOGEN (Dip) NEGATIVE (NEGATIVE); UR WBC 15 /HPF (0-5)
[2019-01-17] MEDS: IOHEXOL 300MG/ML 150 ML BTL (16:00)
[2019-01-18] MEDS: HYDROmorphONE 1 MG/ML SYG IV ×6 (01:49→22:07)
[2019-01-18] MEDS: DEXTROSE 5%-0.45% NACL 1,000 ML IV ×4 (04:18→23:37)
[2019-01-18] MEDS: PANTOPRAZOLE 40 MG INJ IV (05:45)
[2019-01-18 07:22] LABS: ADD MAN DIFF? NO
[2019-01-18 07:28] LABS: WHITE BLOOD COUNT 6.1 10^3/ul (4.8-10.8)
[2019-01-18 07:28] LABS: BASOPHILS % 0.7 % (0.0-2.0); EOSINOPHILS # 0.6 10^3/ul (0.0-0.5); EOSINOPHILS % 10.1 % (0.0-7.0); HEMATOCRIT 29.9 % (37.0-47.0); HEMOGLOBIN 9.2 g/dl (12.0-16.0); LYMPHOCYTES # 2.3 10^3/ul (0.8-2.9); LYMPHOCYTES % 36.8 % (15.0-51.0); MEAN CORPUSCULAR HEMOGLOBIN 27.8 pg (29.0-33.0); MEAN CORPUSCULAR HGB CONC 30.8 g/dl (32.0-37.0); MEAN CORPUSCULAR VOLUME 90.3 fl (82.0-101.0); MEAN PLATELET VOLUME 10.2 fl (7.4-10.4); MONOCYTE # 0.5 10^3/ul (0.3-0.9); MONOCYTES % 8.1 % (0.0-11.0); NEUTROPHIL # 2.7 10^3/ul (1.6-7.5); NEUTROPHILS % 44.1 % (39.0-77.0); PLATELET COUNT 214 10^3/UL (140-415); RED BLOOD COUNT 3.31 10^6/ul (4.20-5.40); RED CELL DISTRIBUTION WIDTH 12.7 % (11.5-14.5)
[2019-01-18 08:00] LABS: ANION GAP 5 (5-13); BLOOD UREA NITROGEN 5 mg/dl (7-20); CALCIUM 7.9 mg/dl (8.4-10.2); CARBON DIOXIDE 25 mmol/L (21-31); CHLORIDE 111 mmol/L (97-110); CREATININE 0.55 mg/dl (0.44-1.00); Estimated GFR > 60 mL/min (>60); GLUCOSE 93 mg/dl (70-220); MAGNESIUM 2.1 mg/dl (1.7-2.5); PHOSPHORUS 3.7 mg/dl (2.5-4.9); POTASSIUM 3.9 mmol/L (3.5-5.1); SODIUM 141 mmol/L (135-144)
[2019-01-19] MEDS: HYDROmorphONE 1 MG/ML SYG IV ×3 (02:11→10:17)
[2019-01-19] MEDS: PANTOPRAZOLE (EC) 40 MG TAB PO (05:36)
[2019-01-19 07:25] LABS: ADD MAN DIFF? NO
[2019-01-19 07:38] LABS: WHITE BLOOD COUNT 5.7 10^3/ul (4.8-10.8)
[2019-01-19 07:38] LABS: BASOPHIL # 0.1 10^3/ul (0.0-0.1); BASOPHILS % 0.9 % (0.0-2.0); EOSINOPHILS # 0.6 10^3/ul (0.0-0.5); EOSINOPHILS % 10.4 % (0.0-7.0); HEMATOCRIT 27.7 % (37.0-47.0); HEMOGLOBIN 8.8 g/dl (12.0-16.0); LYMPHOCYTES % 35.3 % (15.0-51.0); MEAN CORPUSCULAR HEMOGLOBIN 28.1 pg (29.0-33.0); MEAN CORPUSCULAR HGB CONC 31.8 g/dl (32.0-37.0); MEAN CORPUSCULAR VOLUME 88.5 fl (82.0-101.0); MEAN PLATELET VOLUME 10.3 fl (7.4-10.4); MONOCYTE # 0.5 10^3/ul (0.3-0.9); MONOCYTES % 8.6 % (0.0-11.0); NEUTROPHIL # 2.5 10^3/ul (1.6-7.5); NEUTROPHILS % 44.6 % (39.0-77.0); PLATELET COUNT 190 10^3/UL (140-415); RED BLOOD COUNT 3.13 10^6/ul (4.20-5.40); RED CELL DISTRIBUTION WIDTH 12.6 % (11.5-14.5)
[2019-01-19 07:53] LABS: MAGNESIUM 2.1 mg/dl (1.7-2.5)
[2019-01-19 07:56] LABS: ANION GAP 6 (5-13); BLOOD UREA NITROGEN 3 mg/dl (7-20); CALCIUM 8.1 mg/dl (8.4-10.2); CARBON DIOXIDE 26 mmol/L (21-31); CHLORIDE 110 mmol/L (97-110); CREATININE 0.53 mg/dl (0.44-1.00); Estimated GFR > 60 mL/min (>60); GLUCOSE 113 mg/dl (70-220); POTASSIUM 3.6 mmol/L (3.5-5.1); SODIUM 142 mmol/L (135-144)
[2019-01-19] MEDS: DEXTROSE 5%-0.45% NACL 1,000 ML IV (10:19)
[2019-01-19] MEDS: POLYETHYLENE GLYCOL 17 GM PACKET PO ×2 (12:08→21:45)
[2019-01-19] MEDS: traMADol 50 MG TAB PO (17:04)
[2019-01-19] MEDS: SENNA/DOCUSATE NA (8.6MG/50MG) TAB PO (21:45)
[2019-01-20 05:17] LABS: ADD MAN DIFF? NO
[2019-01-20 05:22] LABS: BASOPHIL # 0.1 10^3/ul (0.0-0.1); BASOPHILS % 0.7 % (0.0-2.0); EOSINOPHILS # 0.6 10^3/ul (0.0-0.5); EOSINOPHILS % 7.5 % (0.0-7.0); HEMATOCRIT 29.3 % (37.0-47.0); HEMOGLOBIN 9.6 g/dl (12.0-16.0); LYMPHOCYTES # 2.5 10^3/ul (0.8-2.9); LYMPHOCYTES % 29.9 % (15.0-51.0); MEAN CORPUSCULAR HEMOGLOBIN 28.3 pg (29.0-33.0); MEAN CORPUSCULAR HGB CONC 32.8 g/dl (32.0-37.0); MEAN CORPUSCULAR VOLUME 86.4 fl (82.0-101.0); MEAN PLATELET VOLUME 10.3 fl (7.4-10.4); MONOCYTE # 0.8 10^3/ul (0.3-0.9); NEUTROPHIL # 4.4 10^3/ul (1.6-7.5); NEUTROPHILS % 52.7 % (39.0-77.0); PLATELET COUNT 241 10^3/UL (140-415); RED BLOOD COUNT 3.39 10^6/ul (4.20-5.40); RED CELL DISTRIBUTION WIDTH 12.4 % (11.5-14.5)
[2019-01-20 05:22] LABS: WHITE BLOOD COUNT 8.3 10^3/ul (4.8-10.8)
[2019-01-20 05:42] LABS: MAGNESIUM 2.1 mg/dl (1.7-2.5)
[2019-01-20 05:42] LABS: PHOSPHORUS 4.1 mg/dl (2.5-4.9)
[2019-01-20 05:47] LABS: ANION GAP 6 (5-13); BLOOD UREA NITROGEN 6 mg/dl (7-20); CALCIUM 8.9 mg/dl (8.4-10.2); CARBON DIOXIDE 29 mmol/L (21-31); CHLORIDE 106 mmol/L (97-110); CREATININE 0.61 mg/dl (0.44-1.00); Estimated GFR > 60 mL/min (>60); GLUCOSE 104 mg/dl (70-220); POTASSIUM 3.7 mmol/L (3.5-5.1); SODIUM 141 mmol/L (135-144)
[2019-01-20] MEDS: PANTOPRAZOLE (EC) 40 MG TAB PO (05:53)
[2019-01-20] MEDS: SENNA/DOCUSATE NA (8.6MG/50MG) TAB PO ×2 (08:44→21:07)
[2019-01-20] MEDS: POLYETHYLENE GLYCOL 17 GM PACKET PO ×2 (08:44→21:06)
[2019-01-20] MEDS: DULOXETINE 20 MG CAP DR PO (08:44)
[2019-01-20] MEDS: BISACODYL (EC) 5 MG TAB PO (10:33)
[2019-01-20] MEDS: traMADol 50 MG TAB PO ×2 (10:33→16:55)
[2019-01-20] MEDS: NA PHOSPHATE/BIPHOS 133 ML ENEMA PR (16:54)
[2019-01-20] MEDS: KETOROLAC 30 MG INJ IV (21:08)
[2019-01-21] MEDS: traMADol 50 MG TAB PO (00:24)
[2019-01-21] MEDS: PANTOPRAZOLE (EC) 40 MG TAB PO (05:55)
[2019-01-21 06:52] LABS: ADD MAN DIFF? NO
[2019-01-21 07:02] LABS: WHITE BLOOD COUNT 8.8 10^3/ul (4.8-10.8)
[2019-01-21 07:02] LABS: BASOPHIL # 0.1 10^3/ul (0.0-0.1); BASOPHILS % 0.6 % (0.0-2.0); EOSINOPHILS # 0.6 10^3/ul (0.0-0.5); EOSINOPHILS % 7.2 % (0.0-7.0); HEMATOCRIT 33.4 % (37.0-47.0); HEMOGLOBIN 10.9 g/dl (12.0-16.0); LYMPHOCYTES # 1.2 10^3/ul (0.8-2.9); LYMPHOCYTES % 13.6 % (15.0-51.0); MEAN CORPUSCULAR HEMOGLOBIN 28.7 pg (29.0-33.0); MEAN CORPUSCULAR HGB CONC 32.6 g/dl (32.0-37.0); MEAN CORPUSCULAR VOLUME 87.9 fl (82.0-101.0); MEAN PLATELET VOLUME 10.4 fl (7.4-10.4); MONOCYTE # 0.5 10^3/ul (0.3-0.9); MONOCYTES % 5.8 % (0.0-11.0); NEUTROPHIL # 6.4 10^3/ul (1.6-7.5); NEUTROPHILS % 72.6 % (39.0-77.0); PLATELET COUNT 265 10^3/UL (140-415); RED CELL DISTRIBUTION WIDTH 12.5 % (11.5-14.5)
[2019-01-21 07:21] LABS: MAGNESIUM 2.2 mg/dl (1.7-2.5)
[2019-01-21 07:25] LABS: ANION GAP 8 (5-13); BLOOD UREA NITROGEN 10 mg/dl (7-20); CARBON DIOXIDE 28 mmol/L (21-31); CHLORIDE 103 mmol/L (97-110); CREATININE 0.59 mg/dl (0.44-1.00); Estimated GFR > 60 mL/min (>60); GLUCOSE 121 mg/dl (70-220); SODIUM 139 mmol/L (135-144)
[2019-01-21] MEDS: POLYETHYLENE GLYCOL 17 GM PACKET PO ×2 (08:34→11:35)
[2019-01-21] MEDS: DULOXETINE 20 MG CAP DR PO ×2 (08:34→10:53)
[2019-01-21] MEDS: SENNA/DOCUSATE NA (8.6MG/50MG) TAB PO ×2 (08:35→11:36)
[2019-01-21] MEDS: KETOROLAC 30 MG INJ IV ×2 (10:43→18:25)
== END 2019-01-21 18:50 | disposition home or self-care (01) | DRG 394 ==
LOC: PP2 22:44 → E/R 20:27 → PP2 01-17 00:27
DX: K55.1 Chronic vascular disorders of intestine (principal); E44.0 Moderate protein-calorie malnutrition; Z68.1 Body mass index [BMI] 19.9 or less, adult; F19.10 Other psychoactive substance abuse, uncomplicated; F32.9 Major depressive disorder, single episode, unspecified
CPT/HCPCS: 36415; 74250; 80048; 80053; 81001; 81003; 83690; 83735; 84100; 84703; 85025; 87081; 96374; 96375; 99285-25

== ENCOUNTER 2019-01-27 09:05 | Emergency (ER) | payer SELFPAY, MEDICAID | END 2019-01-27 11:25 | disposition home or self-care (01) | LOC: FTE 11:25 | DX: R10.84 Generalized abdominal pain (principal); F17.210 Nicotine dependence, cigarettes, uncomplicated | CPT/HCPCS: 70450; 71110; 74018; 81025; 99284-25 ==